=== PATIENT | male | born 1965 | race Caucasian/White ===

== ENCOUNTER 2022-09-23 10:56 | Emergency (ER) | payer OTHER, BC ==
[2022-09-23 11:05] VITALS: RESP 18; TEMP 98.1
[2022-09-23] MEDS ORDERED: MORPHINE SULFATE 4 MG/ML SYRINGE IVP STA (11:16)
[2022-09-23] MEDS ORDERED: KETOROLAC 15 MG/ML 1 ML VIAL IVP STA ×2 (11:16→13:39)
[2022-09-23] MEDS ORDERED: DIPH,PERTUS(ACELL)TETVAC-LF 0.5 ML VIAL IM ONE (11:16)
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
[2022-09-23 12:07] LABS: Basophils % (A) 0 %; Eosinophils % (A) 0 %; HCT 42.1 % (39.0-53.0); HGB 14.7 gm/dL (13.0-17.5); Lymphocytes # (A) 0.7 k/uL (1.0-4.8); Lymphocytes % (A) 8 %; MCH 32.3 pg (25.0-35.0); MCHC 34.9 g/dL (31.0-37.0); MCV 92.5 fL (80.0-100.0); Mean Platelet Volume 8.8; Monocytes # (A) 0.4 k/uL (0-1.0); Monocytes % (A) 4 %; Neutrophils # (A) 8.1 k/uL (1.3-7.7); Neutrophils % (A) 87 %; Platelet Count 142 k/uL (150-450); RBC 4.56 m/uL (4.30-5.90); RDW 12.9 % (11.5-15.5); WBC 9.3 k/uL (3.8-10.6)
--- NOTE | 2022-09-23 12:21 | XR ---
EXAMINATION TYPE: XR tibia fibula RT DATE OF EXAM: 09/23/2022 COMPARISON: None HISTORY: Laceration TECHNIQUE: 2 view right tibia and fibula FINDINGS: There is a large laceration along the lateral upper calf region. There are couple of puncta te densities within this laceration laterally. Radiopaque foreign bodies may be present. Osseous structures appear intact. No acute fracture or other osseous abnormality radiographically jerry arent. IMPRESSION: 1. No acute osseous abnormality. 2. Large laceration anterior lateral proximal calf. 3. Couple of punctate foreign bodies may be present laterally within the laceration.
[2022-09-23] MEDS ORDERED: ONDANSETRON 4 MG/2 ML VIAL IVP STA (12:34)
[2022-09-23] MEDS ORDERED: SODIUM CHLORIDE 0.9% 2,000 ML IV STA (12:34)
[2022-09-23 12:35] LABS: Prothrombin Time 10.8 sec (9.0-12.0)
[2022-09-23 12:37] LABS: ALT 19 U/L (4-49); AST 27 U/L (17-59); African American GFR (CKD) >90 (>60 ml/min/1.73 sqM); Albumin 4.1 g/dL (3.5-5.0); Alkaline Phosphatase 52 U/L (38-126); Anion Gap 8 mmol/L; Blood Urea Nitrogen 16 mg/dL (9-20); Carbon Dioxide 25 mmol/L (22-30); Chloride 103 mmol/L (98-107); Glucose 111 mg/dL (74-99); Non-African American GFR(CKD) 86 (>60 ml/min/1.73 sqM); Partial Thromboplastin Time 21.8 sec (22.0-30.0); Potassium 4.6 mmol/L (3.5-5.1); Sodium 136 mmol/L (137-145); Total Bilirubin 0.6 mg/dL (0.2-1.3); Total Protein 6.5 g/dL (6.3-8.2)
[2022-09-23] MEDS ORDERED: LIDOCAINE 2%-EPI 1:100,000 20 ML VIAL SQ STA (13:16)
[2022-09-23] MEDS ORDERED: ceFAZolin 1,000 MG in SODIUM CHLORIDE 0.9% IRRIG BTL 250 ML IRRIGATION ONE (13:30)
[2022-09-23] MEDS ORDERED: HYDROmorphone 1 MG/ML 1 ML SYRINGE IVP STA (13:39)
[2022-09-23] MEDS ORDERED: HYDROmorphone 0.5 MG/0.5 ML SYRINGE IVP STA (15:33)
[2022-09-23] MEDS ORDERED: ONDANSETRON 4 MG ODT STARTER PACK 2 TAB BTL PO STA (15:48)
[2022-09-23 16:03] VITALS: BP 125/85; PULSE 78
== END 2022-09-23 16:12 | disposition home or self-care (01) ==
LOC: EC 10:56
DX: S81.811A Laceration without foreign body, right lower leg, initial encounter (principal); S86.111A Strain of other muscle(s) and tendon(s) of posterior muscle group at lower leg level, right leg, initial encounter; F12.90 Cannabis use, unspecified, uncomplicated; F17.200 Nicotine dependence, unspecified, uncomplicated; Z23 Encounter for immunization; X99.2XXA Assault by sword or dagger, initial encounter
CPT/HCPCS: 99284; 90471; 96375 ×4; 96376 ×2; 96365; 96366; 96361; 12004; 36415; 86900; 86901; 80053; 85025; 85610; 85730; 86850; 73590; 90715; J2270; J0690 ×2; J2405; J1170 ×2; J1885; S0119